=== PATIENT | male | born 1935 | race Caucasian/White ===

== ENCOUNTER → 2016-04-19 | Outpatient (CLI) | payer MEDICARE, OTHER | END | disposition home or self-care (01) | LOC: GMAJ 11:24 | PROVIDERS: ATTEND Family Medicine | DX: C61 Malignant neoplasm of prostate (principal); E03.9 Hypothyroidism, unspecified ==

== ENCOUNTER → 2016-11-12 | Outpatient (CLI) | payer MEDICARE, OTHER | END | disposition home or self-care (01) | LOC: GMAJ 10:35 | PROVIDERS: ATTEND Family Medicine | DX: C61 Malignant neoplasm of prostate (principal); E03.9 Hypothyroidism, unspecified | CPT/HCPCS: 84443; G0103 ==

== ENCOUNTER 2017-02-07 08:11 | Emergency (ER) | payer MEDICARE, OTHER ==
[2017-02-07 08:32] VITALS: TEMP 98.4
--- NOTE | 2017-02-07 08:40 | ED.PDOC ---
History of Present Illness - General Chief Complaint: Lower Extremity Injury Stated Complaint: left leg pain Time Seen by Provider: 02/07/17 08:23 Source: patient Exam Limitations: no limitations - History of Present Illness Initial Comments: PT PRESENTS TO THE ED WITH COMPLAINT OF INTRACTABLE LLE PAIN X 1.5 WEEKS. PT WAS SEEN BY PCP AND HAD BLOOD WORK AND XRAYS DONE WHICH WERE NEGATIVE. PT REPORTS THAT LYRICA AND MEDROL DOSEPACK WERE PRESCRIBED BY PCP BUT HAVE NOT IMPROVED SYMPTOMS. PT REPORTS INABILITY TO SLEEP FOR SEVERAL DAYS DUE TO PAIN. Occurred: last week Pain - Lower Extremity: severe: Left Thigh/Hip, Left Calf Method of Injury: unknown Improving Factors: nothing Worsening Factors: nothing Allergies/Adverse Reactions: Allergies NO KNOWN ALLERGY Allergy (Unverified 06/01/13 08:43) Home Medications: Ambulatory Orders Levothyroxine Sodium 50 mcg PO DAILY 06/01/13 Metformin HCl 500 mg PO BID 06/01/13 Pravastatin Sodium 80 mg PO DAILY 06/01/13 Sildenafil Citrate [Viagra] 100 mg PO PRN 06/01/13 B-Complex Vitamins [Vitamin B Complex] 1 tab PO DAILY 11/08/14 Diphenhydramine HCl (Sleep) [Zzzquil] 25 mg PO DAILY 11/08/14 Garlic [Garlic 705 mg] 1 cap PO DAILY 11/08/14 [place]-3 Fatty Acids [Fish Oil] 1 cap PO DAILY 11/08/14 Vitamin E 400 unit PO DAILY 11/08/14 Acetaminophen W/ Codeine [Tylenol W/ CODEINE #3] 1 ea PO Q4HR PRN #24 02/07/17 Review of Systems - Review of Systems Constitutional: Denies: chills, fever EENTM: Denies: ear pain, nose congestion Respiratory: Denies: cough, short of breath Cardiology: Denies: chest pain, palpitations Gastrointestinal/Abdominal: Denies: nausea, vomiting Genitourinary: Denies: dysuria, frequency Musculoskeletal: Denies: back pain, joint pain, joint swelling Skin: Denies: dryness, lesions Neurological: Denies: headache, paresthesia Endocrine: States: no symptoms reported Hematologic/Lymphatic: States: no symptoms reported Past Medical History (General) - Patient Medical History Hx Congestive Heart Failure: No Hx Diabetes: No Hx MRSA: Yes - Nose Swab 2014 Surgical History: cholecystectomy Family Medical History - Family History Mother Family History: Unknown Physical Exam - Physical Exam General Appearance: Alert, No apparent distress Eyes, Ears, Nose, Throat: normal ENT inspection Cardiovascular/Respiratory: regular rate, rhythm, no M/R/G, normal breath sounds , no respiratory distress Back: normal inspection, no CVA tenderness, no vertebral tenderness Thigh/Hip: normal inspection, non-tender Leg: normal inspection, non-tender Knee: normal inspection, non-tender Ankle: normal inspection, non-tender Foot: normal inspection, non-tender Neuro/Tendon: normal sensation, normal motor functions, normal tendon functions Mental Status: alert, oriented x 3 Skin: normal color, warm/dry Progress - Progress Progress: 02/07/17 10:17 PT REPORTS SIGNIFICANT IMPROVEMENT IN SYMPTOMS AFTER 4MG IM MORPHINE. U/S FINDINGS DISCUSSED. RECOMMENDED FOLLOW UP WITH PCP FOR MRI IF SYMPTOMS PERSIST. - Results/Orders Results/Orders: U/S LLE: NEGATIVE FOR DVT Departure - Departure Clinical Impression: Lower extremity pain Qualifiers: Laterality: left Qualified Code(s): M79.605 - Pain in left leg Time of Disposition: 10:22 Disposition: Discharge to Home or Self Care Condition: Good Departure Forms: ED Discharge - Pt. Copy, Patient Portal Self Enrollment Instructions: DI for Leg Pain Referrals: Pb Sunshine MD [Primary Care Provider] - 1-2 Days Prescriptions: Acetaminophen W/ Codeine [Tylenol W/ CODEINE #3] 1 ea PO Q4HR PRN #24 PRN Reason: Pain Home Medications: Ambulatory Orders Levothyroxine Sodium 50 mcg PO DAILY 06/01/13 Metformin HCl 500 mg PO BID 06/01/13 Pravastatin Sodium 80 mg PO DAILY 06/01/13 Sildenafil Citrate [Viagra] 100 mg PO PRN 06/01/13 B-Complex Vitamins [Vitamin B Complex] 1 tab PO DAILY 11/08/14 Diphenhydramine HCl (Sleep) [Zzzquil] 25 mg PO DAILY 11/08/14 Garlic [Garlic 705 mg] 1 cap PO DAILY 11/08/14 [place]-3 Fatty Acids [Fish Oil] 1 cap PO DAILY 11/08/14 Vitamin E 400 unit PO DAILY 11/08/14 Acetaminophen W/ Codeine [Tylenol W/ CODEINE #3] 1 ea PO Q4HR PRN #24 02/07/17
[2017-02-07] MEDS: MORPHINE SULFATE INJ 10 MG/ML VIAL IM ONE (08:48)
[2017-02-07 09:01] VITALS: O2SAT 97
--- NOTE | 2017-02-07 10:02 | US ---
EXAM DESCRIPTION: Venous,Lower Extremity LT CLINICAL HISTORY: 81 years, Male, lle pain x 1.5 weeks COMPARISON: None TECHNIQUE: Duplex venous ultrasound of the left lower extremity was performed. FINDINGS: The left lower extremity veins are fully compressible and demonstrate physiologic responses to augmentation maneuvers. Color Doppler images show no intraluminal filling defect. IMPRESSION: Negative exam. No evidence of DVT in the left lower extremity. Electronically signed by: Christopher Lopez MD 02/07/2017 10:01 AM [employer]
[2017-02-07 10:04] VITALS: BP 153/87
== END 2017-02-07 10:32 | disposition home or self-care (01) ==
LOC: ER 08:11
DX: M79.605 Pain in left leg (principal)
CPT/HCPCS: 93971; J2270

== ENCOUNTER → 2017-02-09 | Outpatient (CLI) | payer MEDICARE, OTHER ==
--- NOTE | 2017-02-10 03:55 | MRI ---
EXAM DATE: 02/09/2017 1:08 PM [facility]. PROCEDURE: MR LUMBAR SPINE WITHOUT IV CONTRAST. INDICATION: LUMBOSACRAL RADICULOPATHY. COMPARISON: None. TECHNIQUE: Multiplanar T1 and T2 MRI images of the lumbar spine were acquired without administration of intravenous contrast. FINDINGS: 6 mm retrolisthesis of L5 on S1. The remainder of the lumbar vertebral bodies demonstrate normal height and alignment. Mild intervertebral disc space height loss seen throughout the lumbar spine with desiccation. Normal marrow signal. The conus terminates at the level of L1. Unremarkable cauda equina nerve roots. The partially visualized thoracic cord is normal. L1-L2: No significant disc bulge. No spinal canal or neural foraminal narrowing. L2-L3: Mild disc bulge without spinal canal stenosis. Mild ligamentous hypertrophy. Mild bilateral facet arthropathy without significant neural foraminal stenosis. L3-L4: Ligamentous hypertrophy without spinal canal stenosis. Mild/moderate facet arthropathy contributes to mild right foraminal narrowing. No significant left foraminal stenosis. L4-L5: Disc bulge with ligamentous hypertrophy contributes to mild narrowing of the spinal canal. There is effacement of both lateral recesses with disc material contacting the descending bilateral L5 nerve roots. Moderate bilateral facet arthropathy contributes to severe left and moderate right foraminal stenoses. L5-S1: Disc bulge resulting in mild narrowing of the spinal canal. Mild bilateral facet arthropathy contributes to mild/moderate bilateral foraminal stenoses. The partially visualized abdominal pelvic organs are unremarkable. IMPRESSION: Moderate degenerative changes of the lumbar spine most prominent at L4-L5 where there is mild narrowing of the spinal canal, severe left neural foraminal stenosis, and moderate right neural foraminal stenosis. Mild/moderate bilateral foraminal stenosis L5-S1. 6 mm retrolisthesis of L5 on S1. Electronically signed by: Pb Gupta MD 02/10/2017 3:54 AM [facility]
== END | disposition home or self-care (01) ==
LOC: MRI 13:00
PROVIDERS: ATTEND Family Medicine
DX: M54.16 Radiculopathy, lumbar region (principal)

== ENCOUNTER → 2017-08-16 | Outpatient (CLI) | payer MEDICARE, OTHER | LOC: GMAJ 10:32 | PROVIDERS: ATTEND Family Medicine | DX: E03.9 Hypothyroidism, unspecified (principal) ==

== ENCOUNTER 2017-11-28 09:33 | Inpatient (IN) | payer MEDICARE, OTHER ==
--- NOTE | 2017-11-28 11:24 | HP ---
SUPERVISING PHYSICIAN: Pb Sunshine MD CHIEF COMPLAINT: Abdominal pain. HISTORY OF PRESENT ILLNESS: This is an 82-year-old male patient who was seen in his primary care provider's office, Dr. Pb Sunshine. He complained of some abdominal pain that started yesterday. It started in his right side, but has now gone to his left upper quadrant and radiates to the left flank. He has no recollection of any changes in his diet or his activity prior to the onset of his pain. He had no complaints of fever. He did have some mild nausea with it , but no vomiting. Labs obtained at the clinic showed glucose 156, BUN 22, creatinine 1.6. Electrolytes were basically within normal limits. Urinalysis showed trace urine blood, 3+ urine ketones, 1+ urine bilirubin, 1+ protein, 1 to 3 red cells. CBC showed a white blood cell count of 19,300 with hemoglobin 14.3, hematocrit 40, platelet count 341. He had a left shift on differential. Dr. Sunshine sent the patient over for CT of the abdomen. They were unable to do a CT of the abdomen and pelvis with contrast due to his elevated creatinine. He called me for direct admission to the hospital for dehydration and abdominal pain with leukocytosis, most likely diverticulitis. PAST MEDICAL HISTORY: 1. Type 2 diabetes. 2. Hyperlipidemia. 3. Hypertension. 4. Hypothyroidism. 5. History of prostate cancer. PAST SURGICAL HISTORY: 1. Cataract removal. 2. Prostatectomy. 3. Thyroidectomy. 4. Bilateral carpal tunnel. 5. Multiple colonoscopies. OUTPATIENT MEDICATIONS: 1. Lisinopril. 2. Metformin. 3. Pravastatin. 4. Synthroid. ALLERGIES: NO KNOWN DRUG ALLERGIES. SOCIAL HISTORY: He owns a [employer]. He is . He has two children. He denies any tobacco, ETOH or illicit drug use. REVIEW OF SYSTEMS: GENERAL: Positive for fatigue. Negative for fever or weight changes. HEENT: Positive for sinus drainage. Negative for ear pain, vision changes or sore throat. RESPIRATORY: Positive for a mild, nonproductive cough. Negative for dyspnea or wheezing. CARDIAC: Negative for chest pain, palpitations or tachycardia. GASTROINTESTINAL: As per history of present illness. SKIN: Negative for lesions or rashes. NEUROLOGIC: Negative for headache, dizziness or seizures. PHYSICAL EXAMINATION: VITAL SIGNS: Afebrile. Heart rate 81. Blood pressure 151/78. Respiratory rate 18. O2 saturation 100% on room air. GENERAL: This is a an 82-year-old male patient who is lying in his hospital bed. He is in no acute distress. HEENT: Normocephalic, atraumatic. Pupils are equal and reactive. Oropharynx is clear. NECK: Supple without mass. RESPIRATORY: Essentially clear to auscultation bilaterally. CHEST: There is equal rise and fall of the chest with inspiration and expiration. CARDIOVASCULAR: Regular rate and rhythm. GASTROINTESTINAL: Abdomen is soft. It is mildly tender to the left upper quadrant and left lower quadrant. There is no rebound tenderness or guarding. He does have some mild left flank pain. Bowel sounds are positive. EXTREMITIES: No cyanosis, clubbing or edema. NEUROLOGIC: Awake, alert and oriented times three. LABORATORY: Labs and films are as per history of present illness. IMPRESSION: 1. Left upper quadrant abdominal pain that radiates to the left flank with an elevated white blood cell count of greater than 19,000, most likely diverticulitis. 2. Acute renal failure with creatinine 1.6. 3. Hematuria, cannot rule out kidney stone. 4. Hypertension. 5. Hypothyroidism. 6. Diabetes mellitus, type 2. 7. Hyperlipidemia. PLAN: We will admit the patient to the hospital. I have ordered several liters of fluids as he is fairly dehydrated. As soon as he receives his fluids , we will repeat his BMP to check his renal function. If his creatinine has normalized, we will obtain a CT of the abdomen and pelvis with contrast. He has been placed on bowel rest and he is NPO. I will give him primary fluids and start him on Levaquin and Flagyl. In the next day or so, we can advance his diet based on his clinical response. I have put him on Protonix for ulcer prophylaxis and Lovenox for deep venous thrombosis prophylaxis. We will continue to monitor him closely and follow as needed. Dr. Sunshine is the collaborating physician and available for consultation. #[id number] [facility]
[2017-11-28] MEDS ORDERED: SODIUM CHLORIDE 0.9% 1000ML 1,000 ML IVS ONE (11:25)
[2017-11-28] MEDS ORDERED: SODIUM CHLORIDE 0.9% (FLUSH) 10 ML SYG IV PRN (11:25)
[2017-11-28] MEDS ORDERED: ONDANSETRON INJ 4 MG/2 ML VIAL IV PRN (11:25)
[2017-11-28] MEDS ORDERED: IV SET AND CAP CHANGE INJ INJ SCH (11:30)
[2017-11-28] MEDS ORDERED: SODIUM CHLORIDE 0.45% 1000ML 1,000 ML IVS ONE (12:25)
[2017-11-28] MEDS ORDERED: levoFLOXacin 500MG IV 100 ML IVPB ONE (13:32)
[2017-11-28] MEDS: levoFLOXacin 500MG IV 500 MG in PREMIX BAG 1 BAG IVPB SCH (13:41)
[2017-11-28] MEDS ORDERED: metroNIDAZOLE IV PREMIX 500MG 500 MG in PREMIX BAG 1 BAG IVPB SCH (15:00)
[2017-11-28] MEDS ORDERED: metroNIDAZOLE IV PREMIX 500MG 100 ML IVPB ONE (15:01)
[2017-11-28] MEDS: PANTOPRAZOLE SODIUM IV 40 MG VIAL IV SCH (15:24)
[2017-11-28] MEDS ORDERED: DEXTROSE 50% 25 GM/50 ML SYG IV PRN (15:43)
[2017-11-28] MEDS ORDERED: GLUCAGON INJ 1 MG VIAL SUBCU PRN (15:43)
[2017-11-28] MEDS ORDERED: DEX 5% W/NACL 0.45% 1000ML 1,000 ML IVS PRN (15:49)
--- NOTE | 2017-11-28 16:48 | CT ---
EXAM DESCRIPTION: Abdomen/Pelvis w/o Contrast: Computed Tomography. CLINICAL HISTORY: abdominal pain COMPARISON: None. TECHNIQUE: Spiral-axial scans 5 x 5 mm intervals through the abdomen and pelvis without oral or IV contrast. Coronal and sagittal 2.0 mm reconstructions. Total Exam DLP: 670.57 mGy-cm. This exam was performed according to our departmental CT dose-optimization program which includes automated exposure control, adjustment of the mA and/or kV according to patient size and/or use of iterative reconstruction technique; to reduce radiation dose to as low as reasonably achievable (ALARA). FINDINGS: Lung bases and pleura: Unremarkable. Liver, stomach, spleen, and adrenal glands: 2.9 x 1.5 cm left adrenal gland with average Hounsfield density +1. No calcifications. Less than 1 cm cyst in the lateral segment of the left hepatic lobe. Long axis of the right lobe is 16 cm. Small stomach and hiatal hernia. Other solid organs are negative. Pancreas, Gallbladder, and Ducts: Surgical clips in the gallbladder fossa with no fluid. Pancreas and common bile duct are negative. Kidneys and Ureters: Bilateral stranding in the pararenal fat and irregularity of the renal capsules, slightly more on the right. Kidneys are symmetric size, but mild hydronephrosis on the left. No intrarenal radiodense stones bilaterally, but there is a 6 x 3 mm radiodense stone in the distal left ureter approximately 10 cm from the ureterovesical junction. Dilation and periureteral edema abutting the ureter more distally than proximally. Remainder of the ureter distal to the stone is unremarkable. Normal caliber of the right ureter with no radiodense stones.. Mesentery: Edema around the partially obstructed ureter as described. Also pararenal fascial thickening and stranding as described. Aorta: Moderate atherosclerotic calcification with involvement of the origins of the major branch vessels. Small Bowel: Multiple segments contain fluid with small air-fluid levels. Terminal Ileum/Cecum: Cecum distended by fecal material. Small thin appendix unremarkable with normal density of the surrounding fat. Colon: Minimal distention of the ascending colon by fecal matter. The distal transverse colon and distal colon decompressed with no mucosal or wall thickening or pericolic stranding or fluid in the paracolic gutters. Pelvic Organs: Bilateral radical prostate lymph node surgery with decompression of the bladder and no radiodense stones. No fluid in the anterior peritoneal reflection. Spine and Bony Pelvis: Spondylosis L5-S1 and bilateral foraminal narrowing. Minimal concavities in the endplates of more superior lumbar vertebra. Minimal facet degeneration multiple levels. Spondylosis in the included lower thoracic disc spaces. Abdominal Wall/Back Soft Tissues: Diastases of the umbilicus containing fat only no bowel. Small fatty left inguinal hernia not containing bowel. Minimal narrowing of the bilateral hip joints. IMPRESSION: 1. 6 to 7 mm stone in the distal left ureter approximately 10 cm from the ureterovesical junction. Progressive enlarged caliber and periureteral edema from the left renal pelvis to the stone. Mild hydronephrosis left kidney. Bilateral pararenal fatty stranding and renal capsule irregularity more on the left than the right. No abnormality in the right kidney or ureter. 2. Enlarged left adrenal gland most likely cyst or adenoma. If clinically indicated, can be evaluated by MRI, or CTA with IV contrast if renal function improves. Minimal enlargement of the liver. 3. Bowel stasis and fluid in the small bowel. CT appearance of the appendix is unremarkable. Constipation proximal colon. No significant diverticula or inflammatory changes in the distal colon. 4. Spondylosis of the lumbar spine. CRITICAL COMMUNICATION: The critical value was discussed directly by phone with Ms. Aleida Saleh, Nurse Practitioner at approximately 1640 hours, on 11/28/2017. Electronically signed by: Bulmaro Tomas MD 11/28/2017 4:47 PM CDT
[2017-11-28] MEDS ORDERED: MORPHINE SULFATE INJ 10 MG/ML VIAL IV PRN (16:54)
[2017-11-28] MEDS ORDERED: INSULIN LISPRO 100 UNITS/ML PEN SUBCU SCH (18:00)
[2017-11-28] MEDS: SODIUM CHLORIDE 0.45% 1000ML 1,000 ML IVS PRN (18:13)
[2017-11-28] MEDS: ENOXAPARIN SODIUM 40 MG/0.4 ML SYG SUBCU SCH (21:04)
[2017-11-28] MEDS: INSULIN LISPRO 100 UNITS/ML PEN SUBCU SCH (21:04)
[2017-11-28] MEDS: TEMAZEPAM 15 MG CAP PO PRN (21:05)
[2017-11-28] MEDS: SODIUM CHLORIDE 0.9% (FLUSH) 10 ML SYG IV SCH (21:05)
[2017-11-29] MEDS: SODIUM CHLORIDE 0.45% 1000ML 1,000 ML IVS PRN ×3 (01:59→22:51)
[2017-11-29] MEDS: INSULIN LISPRO 100 UNITS/ML PEN SUBCU SCH ×4 (07:11→21:12)
[2017-11-29] MEDS: SODIUM CHLORIDE 0.9% (FLUSH) 10 ML SYG IV SCH ×2 (08:42→21:03)
--- NOTE | 2017-11-29 10:47 | RAD ---
EXAM DESCRIPTION: Abdomen, 2 views CLINICAL HISTORY: kidney stone FINDINGS/ IMPRESSION: Comparison previous CT dated 11/28/2017 Calcification in the left hemipelvis overlying left sacrum compatible with the ureteral calculus seen on previous CT. No other renal, ureteral or bladder calculus. Multiple surgical clips. Bowel gas pattern is normal. Electronically signed by: Shay Faust MD 11/29/2017 10:45 AM CDT
[2017-11-29] MEDS ORDERED: levoFLOXacin 500MG IV 100 ML IVPB ONE (13:36)
[2017-11-29] MEDS: PANTOPRAZOLE SODIUM IV 40 MG VIAL IV SCH (13:52)
[2017-11-29] MEDS: levoFLOXacin 500MG IV 500 MG in PREMIX BAG 1 BAG IVPB SCH (13:55)
[2017-11-29] MEDS ORDERED: MAGNESIUM SULFATE PREMIX 2GM 2 GM in PREMIX BAG 1 BAG IVPB ONE (15:50)
--- NOTE | 2017-11-29 16:08 | PN ---
SUPERVISING PHYSICIAN: Pb Sunshine MD DATE: 11/29/17 SUBJECTIVE: The patient is sitting up on the side of his bed. His son is at the bedside. We discussed at length his appointment with Dr. Colon tomorrow and to continue to strain his urine as well as continue hydration. He has no complaints of nausea, vomiting, diarrhea or constipation, shortness of breath or chest pain. OBJECTIVE: VITAL SIGNS: He is afebrile. Heart rate 77, blood pressure 133/75, respiratory rate 18, 02 saturation 95% on room air. RESPIRATORY: Essentially clear to auscultation bilaterally. CARDIAC: Regular rate and rhythm. GI: Abdomen soft, non-tender, nondistended. Bowel sounds are positive. He does have some mild left flank pain. NEURO: He is awake, alert and oriented x3. LABORATORY: WBCs have improved to 10,300 with hemoglobin 12.1 and hematocrit 35.5. His electrolytes are basically within normal limits with the exception his magnesium is slightly low at 1.7 and his blood glucose ran between 115 and 155. Bilirubin slightly elevated at 1.42. His preliminary blood cultures show no growth after 24 hours. KUB x-ray shows calcification of the left hemipelvis overlying the left compatible with a urethral calculus seen on previous CT and bowel gas pattern is normal. All other labs and films have been reviewed via the EMR. ASSESSMENT: 1. 6 to 7 mm kidney stone in the distal left ureter with mild hydronephrosis. 2. Urinary tract infection with leukocytosis of greater than 19,000 on admission, presently on Levaquin. 3. Acute renal failure on admission with a creatinine of 1.6. It has now improved to 1.27. 4. Hematuria. 5. Hypertension. 6. Hypothyroidism. 7. Diabetes mellitus, type 2. 8. Hyperlipidemia. PLAN: We will continue present supportive care. I have decreased his IV fluids as the patient is taking p.o. fluids well but will continue until after he sees Dr. Colon, to keep him well-hydrated. I have given him some supplemental magnesium and will repeat his lab in the morning. He has an appointment with Dr. Colon, urologist. We will also continue to monitor his urine cultures and he will continue on Levaquin for now. Will continue to monitor him closely and follow as needed. Dr. Sunshine is the collaborating physician and available for consultation. #[id number] [facility]
[2017-11-29] MEDS ORDERED: MAGNESIUM SULFATE PREMIX 2GM 50 ML IVPB ONE (16:23)
[2017-11-29] MEDS ORDERED: LEVOTHYROXINE SODIUM 0.025 MG TAB ONE (20:12)
[2017-11-29] MEDS ORDERED: PRAVASTATIN SODIUM 20 MG TAB PO SCH (21:00)
[2017-11-29] MEDS ORDERED: diphenhydrAMINE HCL 25 MG CAP PO SCH (21:00)
[2017-11-29] MEDS: metFORMIN HCL 500 MG TAB PO SCH (21:02)
[2017-11-29] MEDS: ENOXAPARIN SODIUM 40 MG/0.4 ML SYG SUBCU SCH (21:02)
[2017-11-29] MEDS: TEMAZEPAM 15 MG CAP PO PRN (21:09)
[2017-11-30] MEDS ORDERED: LEVOTHYROXINE SODIUM 0.025 MG TAB PO SCH (06:30)
[2017-11-30] MEDS: INSULIN LISPRO 100 UNITS/ML PEN SUBCU SCH ×2 (07:41→12:58)
[2017-11-30] MEDS: SODIUM CHLORIDE 0.9% (FLUSH) 10 ML SYG IV SCH (08:44)
[2017-11-30] MEDS: metFORMIN HCL 500 MG TAB PO SCH (08:44)
[2017-11-30] MEDS ORDERED: ASPIRIN (ENTERIC COATED) 81 MG TAB PO SCH (09:00)
[2017-11-30] MEDS ORDERED: LISINOPRIL 10 MG TAB PO SCH (09:00)
[2017-11-30] MEDS ORDERED: DOCUSATE SODIUM 100 MG CAP ONE (09:12)
[2017-11-30 09:17] VITALS: O2SAT 99
[2017-11-30] MEDS ORDERED: DOCUSATE SODIUM 100 MG CAP PO SCH (09:30)
[2017-11-30 13:31] VITALS: BP 131/75; TEMP 97.7
[2017-11-30] MEDS ORDERED: PANTOPRAZOLE SODIUM IV 40 MG VIAL IV ONE (14:00)
[2017-11-30] MEDS ORDERED: levoFLOXacin 500MG IV 100 ML IVPB ONE (14:10)
[2017-11-30] MEDS: levoFLOXacin 500MG IV 500 MG in PREMIX BAG 1 BAG IVPB SCH (14:15)
--- NOTE | 2017-11-30 15:53 | CONS ---
DATE OF CONSULTATION: 11/30/17 HISTORY OF PRESENT ILLNESS: Mr. Salas is an 82 year-old white male who presented with about a 3 to 4 day history of left flank to left lower quadrant pain. He was hospitalized with a slight elevation of his white blood count. Since his hospitalization he has done fairly well and in the last 24 hours has had no pain. CT scan suggested about a 6 or 7 mm left distal third ureteral calculus. He also had some mild enlargement of the left adrenal gland they thought was probably either a cyst or an adenoma. In any case, Mr. Salas seems to be doing well now. He is alert and talkative by examination and his abdomen is benign. There is no CVA tenderness. PLAN: I had a lengthy discussion with the patient and he wants to try conservative approach for hopefully stone passage. I am going to put him on some Flomax 0.4 mg p.o. every day, #20, along with Tylenol #3 one to two tablets p.o. every 6 hours p.r.n. pain, #30. Finally, I am going to add some ciprofloxacin 250 mg p.o. b.i.d. for a week. I would like to see him back in my office early next week for a KUB. He is to strain his urine and save stones if he passes a stone. On final note, the patient has had a prior radical prostatectomy a number of years ago for low grade focal prostate cancer. #[id number] [facility]
[2017-11-30] MEDS ORDERED: metFORMIN HCL 500 MG TAB PO SCH (17:00)
[2017-12-01] MEDS ORDERED: PANTOPRAZOLE SODIUM IV 40 MG VIAL IV SCH (06:30)
--- NOTE | 2017-12-08 17:08 | DS ---
SUPERVISING PHYSICIAN: Pb Sunshine M.D. ADMITTING DIAGNOSIS: 1. Left upper quadrant abdominal pain with elevated white count greater than 19,000 concerning for diverticulitis. 2. Acute renal failure with creatinine of 1.6. 3. Hematuria needing to rule out kidney failure. 4. Hypertension. 5. Hypothyroidism. 6. Diabetes mellitus type 2. 7. Hyperlipidemia. DISCHARGE DIAGNOSIS: 1. Kidney stone in the distal left ureter with mild hydronephrosis secondary to stone measuring 6 to 7 mm. 2. Urinary tract infection with final culture results showing no growth at 36 hours. 3. Acute renal failure with creatinine of 1.6 with a baseline of 1.27. 4. Hematuria secondary to #1. 5. Hypertension, stable. 6. Hypothyroidism on supplementation. 7. Diabetes mellitus type 2, stable. 8. Hyperlipidemia. REASON FOR HOSPITALIZATION: Mr. Salas is an 82-year-old male patient that was initially seen by Dr. Sunshine, his primary care provider, complaining of some abdominal pain that had started the day before admission. He noted it started in his right side, but had gone up to the left upper quadrant radiating into his left flank. He had no recall of any changes in his diet or activities prior to the onset of his pain. He denied any fever but did have some mild nausea, but no vomiting. Initial labs on admission did show a white count of 19,300 with a left shift at which time the patient was sent over for CT of abdomen and pelvis, but was unable to use contrast due to the elevated creatinine. He was then admitted to the hospital for dehydration and abdominal pain with leukocytosis with concerns for diverticulitis awaiting CT scan. He was admitted in stable condition. HOSPITAL COURSE: Mr. Salas was admitted to Med/Surg on 11/28/17 for concerns for diverticular disease and some dehydration with concerns for questionable kidney stones. He was started on IV fluids and antibiotics with Levaquin. He did have and abdominal/pelvis CT once his creatinine had cleared up enough to utilize contrast and per radiology interpretation there was note of a 6 to 7 mm stone in the distal left upper ureter approximately 10 cm from the ureterovesical junction. There was also note of mild hydronephrosis with some bilateral pararenal fat stranding and renal capsule irregularity more on the left than the right. No abnormalities of the right kidney or ureter. Also of note was bowel stasis with fluid in the small bowel. CT appearance of the appendix is unremarkable. Constipation of the proximal colon was noted. No significant diverticula or inflammatory changes in the distal colon. LABORATORY: White count had normalized after admission to 9,000 and prior to discharge as well as did his differential. Hemoglobin had remained stable at 12.3 and 36.5 at discharge with platelet count 306,000. Chemistries were showing normal electrolytes both on admission and at discharge with at discharge electrolytes showing potassium of 4.0. His admission creatinine was elevated at 1.6, after fluids was down to 1.02. Blood sugars remained well controlled between 103 and 155. Liver functions all showed to be within normal limits. MICROBIOLOGY: He did have 2 sets of blood cultures that remained negative after 5 days as well as urine culture that showed no growth at 36 hours. It was felt that the patient had responded well to fluids and antibiotics as well as laxatives through relieving the constipation and he had improved well enough to continue with outpatient management. On the morning of discharge he also had a consultation with urology with Dr. Colon with the plan of care being conservative to allow the stone to pass. He was put on some Flomax at 0.4 mg as well as instructed he would have some antibiotics at discharge to include ciprofloxacin and to followup with Dr. Colon in the office. CONSULTATIONS: Dr. Colon. Please see his consultation report for full details. PLAN: Mr. Salas was discharged on 11/30/17 after he was seen in consultation with Dr. Colon. He is to followup with Dr. Colon in his office in 1 to 2 weeks as well as his primary care provider, Dr. Sunshine. He was instructed to take new medications as instructed and to encourage fluid and ambulation to help with stone passage. He was told to return to the hospital or call Dr. Colon or Dr. Sunshine should he have any concerning symptoms. Diet at discharge was diabetic diet as tolerated. Activity is to increase as tolerated. Medications at discharge included: 1. Tylenol #3 one every 4 hours as needed, #30. Prescription written by Dr. Colon. 2. Ciprofloxacin 500 mg twice daily, #14. Prescription by Dr. Colon. 3. Flomax 0.4 mg daily, #28, written by Dr. Colon. All other home medications prior to hospitalization are continued as is. Those medications included: 1. Lisinopril 40 mg daily. 2. Aspirin 81 mg daily. 3. Garlic 1 tablet daily. 4. Vitamin B complex 1 tablet daily. 5. Diphenhydramine 25 mg at bedtime. 6. Pravastatin 80 mg at bedtime. 7. Metformin 500 mg b.i.d. 8. Levothyroxine 50 mcg daily. New prescriptions as noted above. Condition at discharge is stable. Disposition: The patient is discharged home. #[id number] [facility]
== END 2017-11-30 15:57 | disposition home or self-care (01) | DRG 690 ==
LOC: CT 09:33 → MS 11:10
PROVIDERS: ADMIT Nurse Practitioner Acute Care; ATTEND Nurse Practitioner Family
DX: N13.6 Pyonephrosis (principal); N17.9 Acute kidney failure, unspecified; E86.0 Dehydration; E11.9 Type 2 diabetes mellitus without complications; E78.5 Hyperlipidemia, unspecified; E03.9 Hypothyroidism, unspecified; Z85.46 Personal history of malignant neoplasm of prostate; Z79.84 Long term (current) use of oral hypoglycemic drugs; R31.9 Hematuria, unspecified; E83.42 Hypomagnesemia

== ENCOUNTER → 2017-12-21 | Outpatient (CLI) | payer MEDICARE, OTHER ==
--- NOTE | 2017-12-22 08:18 | RAD ---
EXAM DESCRIPTION: [facility] CLINICAL HISTORY: N20.1 COMPARISON: [facility] 11/29/2017. TECHNIQUE: AP supine. FINDINGS: No abnormal radiodense objects overlying the urinary tracts. The calcification overlying the left sacrum on the prior study is no longer present. Kidneys partially obscured by intestinal gas. Minimal small bowel gas. Fecal material in the ascending and transverse colon. Distal colon unremarkable. Spondylosis L5-S1. Multiple bilateral pelvic justin. IMPRESSION: Calculus in the distal left ureter overlying the left sacrum on the prior study is no longer present. Constipation of the ascending and transverse colon. No distended gas-filled segments of bowel. Electronically signed by: Bulmaro Tomas MD 12/22/2017 8:16 AM CDT
== END ==
LOC: RAD 13:40
PROVIDERS: ATTEND Urology
DX: N20.1 Calculus of ureter (principal); K59.00 Constipation, unspecified

== ENCOUNTER → 2017-12-22 | Outpatient (CLI) | payer MEDICARE, OTHER | LOC: GMAJ 10:51 | PROVIDERS: ATTEND Family Medicine | DX: E03.9 Hypothyroidism, unspecified (principal) ==

== ENCOUNTER → 2018-04-25 | Outpatient (CLI) | payer MEDICARE, OTHER | LOC: GMAJ 10:56 | PROVIDERS: ATTEND Family Medicine | DX: E03.9 Hypothyroidism, unspecified (principal) ==

== ENCOUNTER → 2019-04-04 | Outpatient (CLI) | payer MEDICARE, OTHER | LOC: GMAJ 11:43 | PROVIDERS: ATTEND Family Medicine | DX: C61 Malignant neoplasm of prostate (principal); E03.9 Hypothyroidism, unspecified; E11.9 Type 2 diabetes mellitus without complications; I10 Essential (primary) hypertension; E78.00 Pure hypercholesterolemia, unspecified ==

== ENCOUNTER → 2020-04-30 | Outpatient (CLI) | payer MEDICARE, OTHER | LOC: GMAJ 10:24 | PROVIDERS: ATTEND Family Medicine | DX: Z12.5 Encounter for screening for malignant neoplasm of prostate (principal); E03.9 Hypothyroidism, unspecified; E78.2 Mixed hyperlipidemia; I10 Essential (primary) hypertension; E11.9 Type 2 diabetes mellitus without complications | CPT/HCPCS: 84443; G0103 ==